=== PATIENT | female | born 1970 | race Caucasian/White ===

== ENCOUNTER 2016-12-22 23:58 | Emergency (ER) | payer SELFPAY ==
[~2016-12-22] VITALS: Ht 177.8 cm; Wt 75.0 kg
[2016-12-23 00:07] VITALS: BP 115/82; PULSE 85; RESP 20; TEMP 98.2; O2SAT 98
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
== END 2016-12-23 05:41 | disposition home or self-care (01) ==
LOC: NEPD 23:58
DX: F10.929 Alcohol use, unspecified with intoxication, unspecified (principal); Z72.0 Tobacco use
CPT/HCPCS: 99283

== ENCOUNTER 2017-01-17 21:42 | Emergency (ER) | payer SELFPAY ==
[2017-01-17 21:47] VITALS: BP 132/74; PULSE 97; RESP 16; TEMP 98.3; O2SAT 95
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
[2017-01-17] MEDS ORDERED: SODIUM CHLORIDE 0.9% FLUSH 10 ML FLUSH IVF PRN (22:00)
[2017-01-17 22:22] LABS: HEMATOCRIT 38.3 % (35.0-46.0); HEMOGLOBIN 12.5 GM/DL (11.6-15.3); MEAN CELL VOLUME 90.5 FL (80.0-100.0); MEAN CORPUSCULAR HEMOGLOBIN 29.5 PG (27.0-34.0); MEAN CORPUSCULAR HGB CONC 32.6 % (32.0-36.0); MEAN PLATELET VOLUME 8.9 FL (7.0-11.0); PLATELET COUNT 264 TH/MM3 (150-450); RED BLOOD COUNT 4.23 MIL/MM3 (4.00-5.30); RED CELL DISTRIBUTION WIDTH 18.7 % (11.6-17.2)
[2017-01-17 22:51] LABS: BICARBONATE 23.6 MEQ/L (21.0-32.0); CALCIUM 8.8 MG/DL (8.5-10.1); CREATININE 0.81 MG/DL (0.50-1.00)
[2017-01-17 23:27] LABS: LYMPHOCYTES 50 % (9-44); MONOCYTES 2 % (0-8); NEUTROPHIL # MANUAL DIFF 5.3 TH/MM3 (1.8-7.7); POLYS (SEG NEUTROPHILS) 48 % (16-70)
[2017-01-17 23:28] LABS: OVALOCYTES 1+ (NORMAL)
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
[2017-01-18 02:21] VITALS: BP 110/68; PULSE 93; RESP 20; O2SAT 97
[2017-01-18] MEDS ORDERED: POTASSIUM CHLORIDE 20 MEQ CONTROLLED RELEASE TAB PO ONE (07:15)
== END 2017-01-18 07:16 | disposition home or self-care (01) ==
LOC: NEPC 21:42 → NEPD 01-18 07:16
DX: F10.929 Alcohol use, unspecified with intoxication, unspecified (principal); S06.9X9A Unspecified intracranial injury with loss of consciousness of unspecified duration, initial encounter; Z72.0 Tobacco use; Y09 Assault by unspecified means; Y92.511 Restaurant or cafe as the place of occurrence of the external cause
CPT/HCPCS: 70450; 72125; 80048; 80307; 85007; 85027